=== PATIENT | female | born 1960 | race Caucasian/White ===

== ENCOUNTER 2023-03-31 14:24 | Emergency (ER) | payer OTHER ==
[2023-03-31 14:31] VITALS: BP 146/67; PULSE 84; RESP 18; TEMP 98.1; BMI 29.9
[2023-03-31] MEDS ORDERED: KETOROLAC TROMETHAMINE 30 MG/1 ML VIAL IM ONE (14:45)
[2023-03-31] MEDS ORDERED: KETOROLAC TROMETHAMINE 30 MG/1 ML VIAL ONE (15:00)
[2023-03-31] MEDS ORDERED: LIDOCAINE 5% TOPICAL PATCH TP ONE (15:43)
[2023-03-31] MEDS ORDERED: METHOCARBAMOL 500 MG TABLET PO ONE (15:43)
[2023-03-31] MEDS ORDERED: LIDOCAINE 5% TOPICAL PATCH ONE (15:47)
[2023-03-31] MEDS ORDERED: METHOCARBAMOL 500 MG TABLET ONE (15:47)
[2023-03-31] MEDS ORDERED: LIDOCAINE PATCH REMOVAL MC SCH (22:00)
== END 2023-03-31 17:06 | disposition home or self-care (01) ==
LOC: JER 14:24
PROC: 3E0233Z Introduction of Anti-inflammatory into Muscle, Percutaneous Approach (ICD-10-PCS; principal; 2023-03-31)
DX: M54.50 Low back pain, unspecified (principal); M25.562 Pain in left knee; G89.29 Other chronic pain
CPT/HCPCS: 72100-TC-FY; 73502-TC-LT-FY; 73562-TC-LT-FY; 99284-25

== ENCOUNTER 2023-04-27 05:01 | Day surgery (SDC) | payer OTHER ==
[2023-04-23 13:50] VITALS: BMI 31.4
[2023-04-27] MEDS ORDERED: LIDOCAINE HCL/PF 1% SDV 5ML VIAL ONE (07:20)
[2023-04-27] MEDS ORDERED: DEXAMETHASONE SOD PHOSPHATE 10 MG/1 ML VIAL ONE (07:21)
[2023-04-27] MEDS ORDERED: LIDOCAINE HCL 1% PRESERVATIVE FREE - 30ML VIAL IJ ONE (09:22)
[2023-04-27] MEDS ORDERED: IOHEXOL 180 MG/1 ML ML IJ ONE (09:24)
[2023-04-27] MEDS ORDERED: DEXAMETHASONE SOD PHOSPHATE 10 MG/1 ML VIAL IM ONE (09:25)
[2023-04-27 09:57] VITALS: RESP 18
[2023-04-27 10:32] VITALS: BP 126/72; PULSE 92; TEMP 97.7
[2023-04-27] MEDS ORDERED: ACETAMINOPHEN 500 MG TABLET (FP) PO PRN (19:49)
== END 2023-04-27 10:32 | disposition home or self-care (01) ==
LOC: JASU-SURG 05:01
PROVIDERS: ATTEND Pain Medicine Pain Medicine
PROC: 3E0R3BZ Introduction of Anesthetic Agent into Spinal Canal, Percutaneous Approach (ICD-10-PCS; 2023-04-27)
PROC: 3E0R33Z Introduction of Anti-inflammatory into Spinal Canal, Percutaneous Approach (ICD-10-PCS; principal; 2023-04-27 08:45)
DX: M54.16 Radiculopathy, lumbar region (principal)
CPT/HCPCS: 76000-TC-FY; J1100

== ENCOUNTER 2023-06-11 05:23 | Day surgery (SDC) | payer OTHER ==
[2023-06-09 09:47] VITALS: BMI 31.4
[2023-06-11] MEDS ORDERED: ACETAMINOPHEN 500 MG TABLET (FP) PO PRN (07:28)
[2023-06-11 08:46] VITALS: RESP 18
[2023-06-11 10:58] VITALS: TEMP 97.7
[2023-06-11 11:22] VITALS: BP 117/65; PULSE 78
== END 2023-06-11 11:20 | disposition home or self-care (01) ==
LOC: JASU-SURG 05:23
PROVIDERS: ATTEND Pain Medicine Pain Medicine
PROC: 3E0R3BZ Introduction of Anesthetic Agent into Spinal Canal, Percutaneous Approach (ICD-10-PCS; 2023-06-11)
PROC: 3E0R33Z Introduction of Anti-inflammatory into Spinal Canal, Percutaneous Approach (ICD-10-PCS; principal; 2023-06-11 10:15)
DX: M54.16 Radiculopathy, lumbar region (principal)
CPT/HCPCS: 76000-TC-FY

== ENCOUNTER 2024-09-22 03:58 | Day surgery (SDC) | payer OTHER ==
[2024-09-21 12:15] VITALS: BMI 32.5
[2024-09-22] MEDS ORDERED: BUPIVACAINE HCL/PF 0.5% (5MG/ML) 10 ML VIAL ONE (07:28)
[2024-09-22] MEDS ORDERED: LIDOCAINE HCL 1%, 10 MG/ML (20ML VIAL) ONE (07:28)
[2024-09-22] MEDS ORDERED: BUPIVACAINE HCL/PF 0.75% 10 ML VIAL ONE (07:29)
[2024-09-22] MEDS ORDERED: DEXAMETHASONE SOD PHOSPHATE 10 MG/1 ML VIAL ONE (07:29)
[2024-09-22] MEDS ORDERED: LIDOCAINE HCL/PF 1% SDV 5ML VIAL ONE (07:31)
[2024-09-22] MEDS ORDERED: ACETAMINOPHEN 500 MG TABLET (FP) PO PRN (10:00)
[2024-09-22] MEDS: IOHEXOL 180 MG/1 ML ML IJ ONE ×3 (10:29)
[2024-09-22] MEDS: DEXAMETHASONE SOD PHOSPHATE 10 MG/1 ML VIAL IVPUSH ONE ×2 (10:30)
[2024-09-22] MEDS: LIDOCAINE 1% P/F 10 MG/ML VIAL INF ONE ×2 (10:31)
[2024-09-22 10:52] VITALS: BP 154/86; PULSE 80; RESP 16; TEMP 97.3
== END 2024-09-22 11:26 | disposition home or self-care (01) ==
LOC: JASU-SURG 03:58
PROVIDERS: ATTEND Pain Medicine Pain Medicine
PROC: 3E0R3BZ Introduction of Anesthetic Agent into Spinal Canal, Percutaneous Approach (ICD-10-PCS; 2024-09-22)
PROC: 00HU33Z Insertion of Infusion Device into Spinal Canal, Percutaneous Approach (ICD-10-PCS; 2024-09-22)
PROC: 3E0R33Z Introduction of Anti-inflammatory into Spinal Canal, Percutaneous Approach (ICD-10-PCS; 2024-09-22)
PROC: 3E0R3BZ Introduction of Anesthetic Agent into Spinal Canal, Percutaneous Approach (ICD-10-PCS; 2024-09-22)
PROC: 00HU33Z Insertion of Infusion Device into Spinal Canal, Percutaneous Approach (ICD-10-PCS; 2024-09-22)
PROC: 3E0R33Z Introduction of Anti-inflammatory into Spinal Canal, Percutaneous Approach (ICD-10-PCS; principal; 2024-09-22 10:00)
DX: M54.16 Radiculopathy, lumbar region (principal)
CPT/HCPCS: 76000-TC-FY; J1100

== ENCOUNTER 2024-12-15 05:24 | Inpatient (IN) | payer OTHER ==
[2024-12-13 13:06] VITALS: BMI 32.9
[2024-12-15] MEDS ORDERED: DEXAMETHASONE SOD PHOSPHATE 4 MG/1 ML VIAL ONE (10:18)
[2024-12-15] MEDS ORDERED: PROPOFOL 100 ML ONE (10:18)
[2024-12-15] MEDS ORDERED: MIDAZOLAM HCL 2 MG/2 ML SINGLE DOSE VIAL ONE (10:18)
[2024-12-15] MEDS ORDERED: LIDOCAINE HCL/PF 2% SDV 5ML VIAL ONE (10:18)
[2024-12-15] MEDS ORDERED: ONDANSETRON 4 MG/2 ML VIAL ONE (10:18)
[2024-12-15] MEDS ORDERED: ROCURONIUM BROMIDE 50 MG/5 ML SYRINGE ONE (10:59)
[2024-12-15] MEDS ORDERED: ceFAZolin SODIUM 1 GM VIAL ONE (11:07)
[2024-12-15] MEDS: ceFAZolin 2 GRAM PREMIX BAG IVPB ONE (11:30)
[2024-12-15] MEDS ORDERED: PROPOFOL 60 ML ONE ×2 (11:43→13:20)
[2024-12-15] MEDS ORDERED: TRANEXAMIC ACID 1000 MG/10 ML VIAL ONE ×2 (11:50→13:50)
[2024-12-15] MEDS ORDERED: THROMBIN (BOVINE) 20,000 UNIT VIAL TP ONE (12:00)
[2024-12-15] MEDS ORDERED: EPINEPHrine 1:1000 P/F - 1 MG/ML AMP ONE (12:35)
[2024-12-15] MEDS ORDERED: PROPOFOL 20 ML ONE (12:52)
[2024-12-15] MEDS ORDERED: VANCOMYCIN 1,000 MG VIAL (RESTRICTED TO ID ONLY) ONE (13:23)
[2024-12-15] MEDS: BUPIVACAINE LIPOSOME/PF (EXPAREL) 266 MG/20 ML VIAL NR ONE ×2 (14:20)
[2024-12-15] MEDS: BUPIVACAINE HCL/PF 0.5% (5MG/ML) 10 ML VIAL IJ ONE ×2 (14:20)
[2024-12-15] MEDS ORDERED: ONDANSETRON 4 MG/2 ML VIAL IVPUSH PRN ×2 (14:30→15:02)
[2024-12-15] MEDS ORDERED: oxyCODONE HCL 5 MG TABLET PO PRN (14:30)
[2024-12-15] MEDS ORDERED: SUGAMMADEX SODIUM 200 MG/2 ML VIAL ONE (14:34)
[2024-12-15] MEDS ORDERED: diazePAM CARPU-JECT 10 MG/2 ML DISP.SYRIN IVPUSH PRN (15:02)
[2024-12-15] MEDS: LACTATED RINGERS SOLUTION 1,000 ML IV SCH ×2 (15:02→17:00)
[2024-12-15] MEDS: ACETAMINOPHEN 1000 MG/100 ML BAG IVPB ONE (15:40)
[2024-12-15] MEDS ORDERED: KETOROLAC TROMETHAMINE 30 MG/1 ML VIAL IVPUSH SCH (18:00)
[2024-12-15] MEDS: ACETAMINOPHEN 1000 MG/100 ML BAG IVPB PRN (18:56)
[2024-12-15] MEDS: oxyCODONE HCL 5 MG TABLET PO PRN (20:21)
[2024-12-15] MEDS: CEFAZOLIN 1 GM/D5W 1 GM/50 ML BAG IVPB SCH (20:51)
[2024-12-15] MEDS: ROSUVASTATIN CA 10 MG TABLET PO SCH (21:37)
[2024-12-15] MEDS: GABAPENTIN 300 MG CAPSULE PO SCH (21:37)
[2024-12-15] MEDS: INSULIN ASPART SLIDING SCALE (NOVOLOG) 1 VIAL SQ SCH (21:38)
[2024-12-16] MEDS: oxyCODONE HCL 5 MG TABLET PO PRN (00:50)
[2024-12-16 08:25] LABS: HEMATOCRIT 27.3 % (32.4-45.2); HEMOGLOBIN 9.1 GM/dL (10.7-15.3); MCH 27.9 pg (25.7-33.7); MCHC 33.3 g/dl (32.0-36.0); MEAN CELL VOLUME 83.8 fl (80-96); MEAN PLT VOLUME 6.8 fl (7.5-11.1); PLATELET COUNT 217 10^3/uL (134-434); RBC 3.25 M/mm3 (3.60-5.2); RDW 14.1 % (11.6-15.6); WHITE BLOOD COUNT 9.2 K/mm3 (4.0-10.0)
[2024-12-16 08:38] LABS: POTASSIUM 3.7 mmol/L (3.5-5.1)
[2024-12-16 08:41] LABS: CALCIUM 8.8 mg/dL (8.5-10.1)
[2024-12-16 08:42] LABS: BLOOD UREA NITROGEN 15.7 mg/dL (7-18)
[2024-12-16 08:45] LABS: CREATININE 0.8 mg/dL (0.55-1.3)
[2024-12-16] MEDS: DULoxetine HCL 30 MG CAPSULE.DR PO SCH (09:16)
[2024-12-16] MEDS: HYDROCHLOROTHIAZIDE 12.5 MG CAPSULE (FP) PO SCH (09:16)
[2024-12-16] MEDS: VALSARTAN 80 MG TABLET PO SCH (09:16)
[2024-12-16] MEDS: ANASTROZOLE 1 MG TABLET PO SCH (09:19)
[2024-12-16] MEDS ORDERED: PATIENT'S OWN MEDICATION (NON-FORMULARY) (Valsartan/Hydrochlorothiazide [Valsartan-Hctz 80 PO SCH (10:00)
[2024-12-16] MEDS ORDERED: SENNOSIDES 8.6MG TABLET (FP) PO PRN (14:14)
[2024-12-16] MEDS: ACETAMINOPHEN 1000 MG/100 ML BAG IVPB SCH (18:09)
[2024-12-16] MEDS: ACETAMINOPHEN 325 MG TABLET (FP) PO PRN (21:59)
[2024-12-17] MEDS: ACETAMINOPHEN 1000 MG/100 ML BAG IVPB ONE (06:43)
[2024-12-17 08:37] LABS: BASO % 0.3 % (0-2.0); EOS % 0.3 % (0-4.5); HEMATOCRIT 25.9 % (32.4-45.2); HEMOGLOBIN 8.8 GM/dL (10.7-15.3); LYMPH % 7.4 % (8-40); MCH 28.2 pg (25.7-33.7); MCHC 33.9 g/dl (32.0-36.0); MEAN CELL VOLUME 83.1 fl (80-96); MEAN PLT VOLUME 7.2 fl (7.5-11.1); MONO % 9.4 % (3.8-10.2); NEUT % 82.6 % (42.8-82.8); PLATELET COUNT 183 10^3/uL (134-434); RBC 3.12 M/mm3 (3.60-5.2); RDW 14.3 % (11.6-15.6); WHITE BLOOD COUNT 9.4 K/mm3 (4.0-10.0)
[2024-12-17 08:55] LABS: POTASSIUM 3.1 mmol/L (3.5-5.1)
[2024-12-17 08:56] LABS: CALCIUM 8.7 mg/dL (8.5-10.1)
[2024-12-17 08:57] LABS: ALBUMIN 2.9 g/dl (3.4-5.0); BLOOD UREA NITROGEN 11.1 mg/dL (7-18)
[2024-12-17 09:00] LABS: CREATININE 0.7 mg/dL (0.55-1.3)
[2024-12-17 09:02] LABS: BILIRUBIN,TOTAL 0.7 mg/dL (0.2-1); TOT PROT 5.1 g/dl (6.4-8.2)
[2024-12-17] MEDS: POLYETHYLENE GLYCOL (HEALTHYLAX) 3350 17 GM PACKET PO SCH (09:25)
[2024-12-17] MEDS: POTASSIUM CHLORIDE ORAL LIQUID 20 MEQ/15 ML PO ONE (16:19)
[2024-12-17] MEDS: KCL 10 MEQ IVPB 10 MEQ/100 ML INFUS.BAG IVPB SCH (16:21)
[2024-12-17] MEDS: diazePAM 5 MG TABLET PO ONE (22:41)
[2024-12-18 08:45] LABS: BASO % 0.3 % (0-2.0); EOS % 0.3 % (0-4.5); HEMATOCRIT 28.9 % (32.4-45.2); HEMOGLOBIN 9.4 GM/dL (10.7-15.3); LYMPH % 6.9 % (8-40); MCH 27.5 pg (25.7-33.7); MCHC 32.5 g/dl (32.0-36.0); MEAN CELL VOLUME 84.8 fl (80-96); MEAN PLT VOLUME 6.6 fl (7.5-11.1); MONO % 7.8 % (3.8-10.2); NEUT % 84.7 % (42.8-82.8); PLATELET COUNT 248 10^3/uL (134-434); RBC 3.41 M/mm3 (3.60-5.2); RDW 13.9 % (11.6-15.6); WHITE BLOOD COUNT 9.8 K/mm3 (4.0-10.0)
[2024-12-18 09:35] LABS: CALCIUM 9.1 mg/dL (8.5-10.1)
[2024-12-18 09:36] LABS: ALBUMIN 2.8 g/dl (3.4-5.0); BLOOD UREA NITROGEN 7.6 mg/dL (7-18)
[2024-12-18 09:39] LABS: BILIRUBIN,TOTAL 0.9 mg/dL (0.2-1); CREATININE 0.7 mg/dL (0.55-1.3); TOT PROT 5.5 g/dl (6.4-8.2)
[2024-12-18] MEDS: LACTATED RINGERS SOLUTION 1,000 ML IV SCH (09:54)
[2024-12-18] MEDS: ACETAMINOPHEN 1000 MG/100 ML BAG IVPB PRN (09:56)
[2024-12-18] MEDS: HEPARIN NA (PORCINE) 5,000 UNITS/ML 1ML VIAL SQ SCH (22:15)
[2024-12-19] MEDS ORDERED: INSULIN ASPART SLIDING SCALE (NOVOLOG) 1 VIAL SQ ONE (11:48)
[2024-12-19] MEDS: oxyCODONE HCL 5 MG TABLET PO PRN (12:56)
[2024-12-19] MEDS: BISACODYL 5 MG TABLET.DR (FP) PO ONE (12:56)
[2024-12-20 01:57] VITALS: RESP 18
[2024-12-20 07:01] VITALS: BP 118/67; PULSE 88; TEMP 98.2
== END 2024-12-20 11:40 | disposition home health service (06) | DRG 448 ==
LOC: JASUSAT 05:24 → INTOOBSV 15:02 → J2C 15:02 → UNDOADMOB 15:02 → J2C 16:58 → J8W 16:58 → J2C 12-16 18:21 → OBSVTOIN 12-16 18:21 → J8W 12-16 18:21
PROVIDERS: ADMIT Orthopaedic Surgery Orthopaedic Surgery of the Spine; ATTEND Family Medicine
PROC: 01NB0ZZ Release Lumbar Nerve, Open Approach (ICD-10-PCS; 2024-12-15)
PROC: 4A11X4G Monitoring of Peripheral Nervous Electrical Activity, Intraoperative, External Approach (ICD-10-PCS; 2024-12-15)
PROC: 0SG10K1 Fusion of 2 or more Lumbar Vertebral Joints with Nonautologous Tissue Substitute, Posterior Approach, Posterior Column, Open Approach (ICD-10-PCS; principal; 2024-12-15 10:00)
DX: M48.062 Spinal stenosis, lumbar region with neurogenic claudication (principal); I10 Essential (primary) hypertension; K21.9 Gastro-esophageal reflux disease without esophagitis; K58.9 Irritable bowel syndrome, unspecified; E78.5 Hyperlipidemia, unspecified; E11.9 Type 2 diabetes mellitus without complications; B35.1 Tinea unguium; M54.30 Sciatica, unspecified side; K62.3 Rectal prolapse; M54.16 Radiculopathy, lumbar region; Z88.0 Allergy status to penicillin
CPT/HCPCS: 36415; 72100-TC-FY; 76000-TC-FY; 80048; 80053; 82962; 85025; 85027; 86850; 86900; 86901; 94010; 94760; 97116-GP; 97162-GP; C1713; C1889; J0131; J0666; J1644

== ENCOUNTER 2024-12-27 06:57 | Observation (INO) | payer OTHER ==
[2024-12-27 07:04] VITALS: BMI 32.9
[2024-12-27] MEDS: SODIUM CHLORIDE 1,000 ML IV STA (08:00)
[2024-12-27] MEDS: ACETAMINOPHEN 1000 MG/100 ML BAG IVPB ONE (08:00)
[2024-12-27] MEDS ORDERED: ACETAMINOPHEN INJECTION 100 ML ONE (08:22)
[2024-12-27 09:03] LABS: INR 1.04 (0.83-1.09); PROTHROMBIN TIME (PATIENT) 11.4 SEC (9.7-13.0)
[2024-12-27 09:04] LABS: ABSOLUTE IMMATURE GRANULOCYTES 0.08 x10^3/uL (0.0-0.031); BASOPHILS # 0.07 x10^3/uL (0.01-0.08); EOSINOPHIL % 1.8 % (0.7-5.8); EOSINOPHILS # 0.19 x10^3/uL (0.04-0.36); HEMATOCRIT 32.9 % (34.1-44.9); HEMOGLOBIN 10.3 g/dL (11.2-15.7); MCHC 31.3 g/dl (32.2-35.5); MEAN CELL VOLUME 86.4 fl (79.4-94.8); MEAN PLT VOLUME 8.1 fl (9.4-12.3); MONOCYTE # 0.57 x10^3/uL (0.24-0.86); MONOCYTE % 5.5 % (4.7-12.5); RDW 13.6 % (12.4-16.4)
[2024-12-27 09:15] LABS: POTASSIUM 3.2 mmol/L (3.5-5.1)
[2024-12-27 09:17] LABS: BLOOD UREA NITROGEN 19.1 mg/dL (7-18); CALCIUM 10.3 mg/dL (8.5-10.1)
[2024-12-27 09:20] LABS: CREATININE 0.8 mg/dL (0.55-1.3)
[2024-12-27 09:22] LABS: BILIRUBIN,TOTAL 0.4 mg/dL (0.2-1); TOT PROT 6.7 g/dl (6.4-8.2)
[2024-12-27 09:26] LABS: ALBUMIN 3.6 g/dl (3.4-5.0)
[2024-12-27] MEDS ORDERED: ceFAZolin SODIUM 1 GM VIAL ONE (09:57)
[2024-12-27] MEDS ORDERED: THROMBIN (BOVINE) 20,000 UNIT VIAL TP ONE (09:57)
[2024-12-27] MEDS ORDERED: BUPIVACAINE HCL/PF 0.5% (5MG/ML) 10 ML VIAL ONE (09:58)
[2024-12-27] MEDS ORDERED: EPINEPHrine 1:1000 P/F - 1 MG/ML AMP ONE (09:58)
[2024-12-27] MEDS ORDERED: BUPIVACAINE LIPOSOME/PF (EXPAREL) 266 MG/20 ML VIAL ONE (10:34)
[2024-12-27] MEDS ORDERED: VANCOMYCIN 1,000 MG VIAL (RESTRICTED TO ID ONLY) ONE ×2 (10:34→12:58)
[2024-12-27] MEDS ORDERED: GENTAMICIN SO4 80 MG/2 ML VIAL ONE (10:34)
[2024-12-27] MEDS: KCL 10 MEQ IVPB 10 MEQ/100 ML INFUS.BAG IVPB SCH (10:43)
[2024-12-27] MEDS: ceFAZolin SODIUM 1 GM VIAL IVPB ONE ×3 (12:15→12:19)
[2024-12-27] MEDS: GENTAMICIN SO4 80 MG/2 ML VIAL IVPB ONE ×2 (12:19)
[2024-12-27] MEDS: HYDROGEN PEROXIDE 473 ML PO ONE ×2 (12:20)
[2024-12-27] MEDS: BUPIVACAINE HCL/PF 0.5% (5MG/ML) 10 ML VIAL IJ ONE (13:46)
[2024-12-27] MEDS: BUPIVACAINE LIPOSOME/PF (EXPAREL) 266 MG/20 ML VIAL NR ONE (13:46)
[2024-12-27] MEDS ORDERED: ONDANSETRON 4 MG/2 ML VIAL IVPUSH PRN (14:58)
[2024-12-27] MEDS ORDERED: diazePAM CARPU-JECT 10 MG/2 ML DISP.SYRIN IVPUSH PRN (14:58)
[2024-12-27] MEDS: ACETAMINOPHEN 1000 MG/100 ML BAG IVPB PRN (16:01)
[2024-12-27] MEDS: ACETAMINOPHEN INJECTION 100 ML ONE (16:01)
[2024-12-27] MEDS: CEFAZOLIN 2 GM in DEXTROSE 5%-WATER - 50 ML IVPB SCH (17:20)
[2024-12-27] MEDS: LACTATED RINGERS SOLUTION 1,000 ML IV SCH ×2 (17:20→17:45)
[2024-12-27 18:04] LABS: PLATELET COUNT 462 x10^3/uL (182-369)
[2024-12-27] MEDS: CEFAZOLIN 2 GM/D5W 2 GM/50 ML ML IVPB SCH (18:11)
[2024-12-27] MEDS: oxyCODONE HCL 5 MG TABLET PO PRN ×2 (18:13→22:11)
[2024-12-27] MEDS ORDERED: POLYETHYLENE GLYCOL (HEALTHYLAX) 3350 17 GM PACKET PO PRN (18:25)
[2024-12-27] MEDS ORDERED: SENNOSIDES 8.6MG TABLET (FP) PO PRN (18:25)
[2024-12-27] MEDS: GABAPENTIN 300 MG CAPSULE PO SCH (22:11)
[2024-12-27] MEDS: ROSUVASTATIN CA 10 MG TABLET PO SCH (22:12)
[2024-12-28 09:17] LABS: HEMOGLOBIN 8.4 g/dL (11.2-15.7); MCHC 31.1 g/dl (32.2-35.5); MEAN CELL VOLUME 87.4 fl (79.4-94.8); MEAN PLT VOLUME 8.4 fl (9.4-12.3); PLATELET COUNT 416 x10^3/uL (182-369); RDW 14.2 % (12.4-16.4)
[2024-12-28 09:31] LABS: POTASSIUM 3.5 mmol/L (3.5-5.1)
[2024-12-28] MEDS: VALSARTAN 80 MG TABLET PO SCH (09:42)
[2024-12-28] MEDS: DULoxetine HCL 30 MG CAPSULE.DR PO SCH (09:42)
[2024-12-28] MEDS: HYDROCHLOROTHIAZIDE 12.5 MG CAPSULE (FP) PO SCH (09:43)
[2024-12-28] MEDS: ANASTROZOLE 1 MG TABLET PO SCH (09:43)
[2024-12-28 10:00] LABS: CALCIUM 8.9 mg/dL (8.5-10.1)
[2024-12-28] MEDS ORDERED: PATIENT'S OWN MEDICATION (NON-FORMULARY) (Valsartan/Hydrochlorothiazide [Valsartan-Hctz 80 PO SCH (10:00)
[2024-12-28 10:01] LABS: BLOOD UREA NITROGEN 10.6 mg/dL (7-18)
[2024-12-28 10:04] LABS: CREATININE 0.7 mg/dL (0.55-1.3)
[2024-12-28] MEDS: CEFAZOLIN 2 GM/D5W 2 GM/50 ML ML IVPB SCH (11:22)
[2024-12-28] MEDS: IRON SUCROSE INJECTION 200 MG in SODIUM CHLORIDE 100 ML IVPB ONE (17:22)
[2024-12-28] MEDS ORDERED: oxyCODONE HCL 5 MG TABLET PO PRN (18:41)
[2024-12-28] MEDS ORDERED: OXYBUTYNIN CHLORIDE 5 MG TABLET PO PRN (18:50)
[2024-12-28] MEDS: oxyCODONE HCL 5 MG TABLET PO PRN (18:57)
[2024-12-28] MEDS: ROSUVASTATIN CA 10 MG TABLET PO ONE (21:21)
[2024-12-28] MEDS: GABAPENTIN 300 MG CAPSULE PO ONE (21:21)
[2024-12-29] MEDS: INSULIN ASPART SLIDING SCALE (NOVOLOG) 1 VIAL SQ SCH (06:20)
[2024-12-29 07:22] VITALS: RESP 18
[2024-12-29] MEDS: CEFAZOLIN 2 GM/D5W 2 GM/50 ML ML IVPB SCH (10:03)
[2024-12-29] MEDS: DULoxetine HCL 30 MG CAPSULE.DR PO SCH (10:03)
[2024-12-29] MEDS: GABAPENTIN 300 MG CAPSULE PO SCH (10:04)
[2024-12-29] MEDS: ANASTROZOLE 1 MG TABLET PO SCH (11:40)
[2024-12-29 11:44] LABS: ABSOLUTE IMMATURE GRANULOCYTES 0.08 x10^3/uL (0.0-0.031); BASOPHILS # 0.06 x10^3/uL (0.01-0.08); EOSINOPHILS # 0.18 x10^3/uL (0.04-0.36); HEMATOCRIT 30.2 % (34.1-44.9); HEMOGLOBIN 9.1 g/dL (11.2-15.7); MCHC 30.1 g/dl (32.2-35.5); MEAN CELL VOLUME 87.3 fl (79.4-94.8); MEAN PLT VOLUME 8.2 fl (9.4-12.3); MONOCYTE % 7.6 % (4.7-12.5); PLATELET COUNT 386 x10^3/uL (182-369)
[2024-12-29 11:59] LABS: POTASSIUM 3.1 mmol/L (3.5-5.1)
[2024-12-29 12:00] LABS: CALCIUM 9.1 mg/dL (8.5-10.1)
[2024-12-29 12:01] LABS: BLOOD UREA NITROGEN 5.3 mg/dL (7-18)
[2024-12-29 12:04] LABS: CREATININE 0.6 mg/dL (0.55-1.3)
[2024-12-29 14:18] VITALS: BP 130/64; PULSE 94; TEMP 99
[2024-12-29] MEDS: ACETAMINOPHEN 500 MG TABLET (FP) PO PRN (17:30)
[2024-12-29] MEDS ORDERED: ROSUVASTATIN CA 10 MG TABLET PO SCH (22:00)
== END 2024-12-29 19:15 | disposition home or self-care (01) ==
LOC: JER 06:57 → JASUSAT 10:05 → J8W 13:04 → JASUSAT 16:40 → J8W 16:40
PROVIDERS: ADMIT Internal Medicine; ATTEND Internal Medicine
PROC: 3E0337Z Introduction of Electrolytic and Water Balance Substance into Peripheral Vein, Percutaneous Approach (ICD-10-PCS; 2024-12-27)
PROC: 00JU0ZZ Inspection of Spinal Canal, Open Approach (ICD-10-PCS; 2024-12-27)
PROC: 3E03329 Introduction of Other Anti-infective into Peripheral Vein, Percutaneous Approach (ICD-10-PCS; principal; 2024-12-27 12:30)
DX: Z98.1 Arthrodesis status (principal); I10 Essential (primary) hypertension; E78.5 Hyperlipidemia, unspecified; J98.11 Atelectasis; G89.29 Other chronic pain; E11.9 Type 2 diabetes mellitus without complications; Z98.890 Other specified postprocedural states; Z90.49 Acquired absence of other specified parts of digestive tract; Z85.3 Personal history of malignant neoplasm of breast; Z88.0 Allergy status to penicillin; Z88.8 Allergy status to other drugs, medicaments and biological substances
CPT/HCPCS: 0719T; 22830; 96361; 96365; 96366; 96367; 96375; 96376; 36415; 71045-TC-FY; 72100-TC-FY; 72131-TC; 76000-TC-FY; 80048; 80053; 82728; 82962; 83540; 83550; 84466; 85025; 85027; 85610; 86850; 86900; 86901; 93005; 93010; 94010; 94760; 97116-GP; 97161-GP; 99285-25; C1713; G0378; J0131; J0666; J1756